=== PATIENT | male | born 1995 | race Caucasian/White ===

== ENCOUNTER 2024-09-24 19:53 | Emergency (ER) | payer OTHER, SELFPAY ==
[2024-09-24 19:59] VITALS: BP 143/90; PULSE 111; TEMP 36.9; O2SAT 96; BMI 33.9
--- NOTE | 2024-09-24 20:12 | ED_ITS ---
HPI - Animal Bite General Chief Complaint: Animal Bite Stated Complaint: Dog Bite Time Seen by Provider: 09/24/24 20:02 Source: patient Mode of arrival: walk-in Limitations: no limitations History of Present Illness HPI narrative: This 29-year-old male is brought to the emergency department by his parents. The patient states that his friend's dog jumped up and was greeting him and caught his chin with his paw. He flatly denies that the dog bit him. He initially admitted that he was bit but then afterwards recanted his story stating that he was just hit in the jaw with the dog's claw. He has an approximately 3 cm x 3 cm irregular laceration overlying his chin. He does not know the date of his last tetanus shot. He denies any additional injuries. He believes that the dog has all of its vaccinations. Related Data Home Medications ?Medication ?Instructions ?Recorded ?Confirmed lamotrigine 100 mg tablet mg 09/24/24 lamotrigine 25 mg tablet mg 09/24/24 paroxetine HCl 20 mg tablet mg PO 09/24/24 risperidone 0.25 mg tablet mg 09/24/24 Allergies Allergy/AdvReac Type Severity Reaction Status Date / Time No Known Drug Allergies Allergy Verified 09/24/24 20:05 Review of Systems ROS Status of ROS 10 or more systems reviewed and unremark able except as noted in history and below PFSH PFSH Social History Little interest or pleasure in doing things: not at all Feeling down, depressed, or hopeless: not at all Exam Narrative Exam Narrative: Vital signs and Nursing Notes reviewed: Patient is afebrile, tachycardic with a pulse of 111 and blood pressure is elevated 143/90, he is not hypoxic with pulse ox of 96% on room air General: Awake, alert, oriented, no acute distress, lying comfortably on the stretcher-large chin deformity, no active bleeding HEENT: Normocephalic atraumatic, mucous membranes are moist and pink, eyes are clear, normal conjunctiva, vision is grossly intact, posterior pharynx is normal in appearance. There is no dental or inner lower lip injury. There is an approximately 3 x 3 cm irregular laceration to the anterior chin. No active bleeding noted Neck: Supple, no meningeal signs, no anterior or posterior cervical lymphadenopathy Chest: Lungs are clear to auscultation with good air entry, there is no wheezing rhonchi or rales appreciated no accessory muscle use, patient is speaking in complete sentences-no chest wall tenderness to palpation CVS: Regular rate and rhythm S1-S2, no murmurs rubs or gallops, pulses are brisk and equal bilaterally Extremities: Moving all extremities, no lower extremity tenderness or swelling noted, negative Homans' sign, pulses are brisk and equal bilaterally Skin: Large skin deficit on the anterior chin otherwise skin is normal with no sign of injury rash or laceration Neuro: No focal deficits Constitutional Vital Signs, click to edit/add: Last Vital Signs Temp 98.5 F 09/24/24 19:59 Pulse 111 H 09/24/24 19:59 Resp 18 09/24/24 19:59 BP 143/90 H 09/24/24 19:59 Pulse Ox 96 09/24/24 19:59 O2 Del Method Room Air 09/24/24 19:59 Course Vital Signs Vital signs: Vital Signs Temperature 98.5 F 09/24/24 19:59 Pulse Rate 111 H 09/24/24 19:59 Respiratory Rate 18 09/24/24 19:59 Blood Pressure 143/90 H 09/24/24 19:59 Pulse Oximetry 96 09/24/24 19:59 Oxygen Delivery Method Room Air 09/24/24 19:59 Temperature 98.5 F 09/24/24 19:59 Pulse Rate 111 H 09/24/24 19:59 Respiratory Rate 18 09/24/24 19:59 Blood Pressure 143/90 H 09/24/24 19:59 Pulse Oximetry 96 09/24/24 19:59 Oxygen Delivery Method Room Air 09/24/24 19:59 MDM - Animal Bite MDM Narrative Medical decision making narrative: This 29-year-old male presents for evaluation of a large laceration to his chin after he was either bit or scratched by a large dog. He denies that he was actually bit and refused to fill out the dog bite information stating that the dog jumped up on him to greet him and caught his chin with his clot. He sustained approximately 3 x 3 cm irregular laceration/defect in the anterior chin. His tetanus was updated and he was medicated with ibuprofen. He declined the need for any pain medication. The laceration was closed with 3 and 4-0 Ethilon sutures. Wound edge approximation was respectable. He will be referred to outpatient plastic surgery if he is not satisfied with the repair as it heals. He declined the need for any pain medication but will be given a prescription for Augmentin for the next 10 days and ibuprofen to use as needed. Additionally I suggested that he use ice over his chin as there will be swelling. He is in agreement with this plan. Discharge Plan Discharge Chief Complaint: Animal Bite Clinical Impression: Dog bite, Complex laceration of face Patient Disposition: Home, Self-Care Time of Disposition Decision: 21:03 Condition: Good Prescriptions / Home Meds: No Action risperidone 0.25 mg tablet lamotrigine 25 mg tablet paroxetine HCl 20 mg tablet PO lamotrigine 100 mg tablet Print Language: Ukrainian Instructions: Animal Bite (ED), Care For Your Stitches (ED), Laceration (ED) Additional Instructions: Use ice for swelling, ibuprofen as needed for pain. You can clean the area with sutures with gentle soap and water. Keep the area clean. Return to the emergency department for fever, swelling in this area any purulent drainage or severe pain. Finish all of your antibiotics. Sutures can be removed in the next 7 to 10 days. Referrals: [facility] [Other] - 1 week (Dr Baez- plastic surgeon [phone]) Physician,Non-Staff, [Physician] - 1 week Procedures ED Procedure Instructions Procedures Procedures: Procedure note: Facial laceration repair; the procedure was explained to the patient's in detail. He consented verbally to the procedure. The wound edges were infiltrated with 1% lidocaine with epinephrine. When anesthesia was obtained the wound was cleaned vigorously with Hibiclens and sterile water. It was then rinsed with sterile water. Multiple 3 and 4-0 Ethilon sutures were used to approximate the small skin flaps on the edges of the laceration and then the center of the laceration was brought together with 3-0 Ethilon sutures. Good wound edge approximation was obtained. Patient was satisfied with the results. Approximately 16-18 sutures were used to close this laceration.
[2024-09-24] MEDS: ADACEL DIPH,PERTUSS(ACELL),TET VAC/PF 0.5 ML ADULT SYRINGE IM (21:03)
[2024-09-24] MEDS: AMOXICILLIN/POT CLAV 875-125 MG TABLET 1 TAB PO (21:03)
[2024-09-24] MEDS: LIDOCAINE HCL 1%-EPINEPHRINE 1:100,000 20 ML MDV 10 ML INJ (21:06)
[2024-09-24 21:11] VITALS: BP 142/79; PULSE 107; O2SAT 97
--- NOTE | 2024-09-24 21:15 | PC.NURSE ---
i gave this patient verbal and written discharge orders and this patient voices yes to understanding these. at time of discharge this patient voices no concerns and shows no signs of distress
== END 2024-09-24 21:17 | disposition home or self-care (01) ==
PROVIDERS: Emergency Provider Emergency Medicine; PCP Family Medicine
DX: S01.81XA Laceration without foreign body of other part of head, initial encounter (principal); Z23 Encounter for immunization; W54.1XXA Struck by dog, initial encounter
CPT/HCPCS: 12013; 90471; 90715; 99284